=== PATIENT | male | born 1985 | race Caucasian/White ===

== ENCOUNTER → 2018-09-13 | Outpatient (CLI) | payer OTHER ==
--- NOTE | 2018-09-13 12:02 | CARD ---
MR#: [id number] Date of Study: 09/13/2018 Ordering Physician: JEANNETTE FLYNN, Referring Physician: JEANNETTE FLYNN Tech: Marisa Sharam SHIVANI APPROVED REPORT EXAM: Two-dimensional and M-mode echocardiogram with Doppler and color Doppler. Other Information Quality : GoodHR: 65bpm Rhythm : NSR INDICATION Chest Pain 2D DIMENSIONS RVDd3.1 (2.9-3.5cm)Left Atrium(2D)3.1 (1.6-4.0cm) IVSd0.9 (0.7-1.1cm)Aortic Root(2D)3.3 (2.0-3.7cm) LVDd5.7 (3.9-5.9cm)LVOT Diameter2.5 (1.8-2.4cm) PWd1.0 (0.7-1.1cm)LVDs3.6 (2.5-4.0cm) FS (%) 37.1 %SV104.9 ml LVEF(%)66.3 (>50%) M-Mode DIMENSIONS Left Atrium(MM)3.61 (2.5-4.0cm)Aortic Root3.64 (2.2-3.7cm) Aortic Valve AoV Peak Parrish.126.1cm/sAoV VTI26.9cm AO Peak GR.6.4mmHgLVOT Peak Parrish.106.6cm/s AO Mean GR.3mmHgAVA (VMAX)4.26cm2 IRVIN (VTI)4.20cm2 Mitral Valve MV E Tarjyjxi157.1cm/sMV DECEL TAMV900ac MV A Grhzwcyi65.2cm/sE/A Ratio2.2 Pulmonary Valve PV Peak Kfubuyob124.6cm/s Tricuspid Valve TR P. Ftjthpgm174xi/sRAP OXXOXUEV4bhOe TR Peak Gr.18cnXsHSTK03dlSd LEFT VENTRICLE The left ventricle is normal size. There is normal left ventricular wall thickness. The left ventricu lar systolic function is normal and the ejection fraction is within normal range. The Ejection Fracti on is 60-65%. There is normal LV segmental wall motion. The left ventricular diastolic function and f illing is normal for age. RIGHT VENTRICLE The right ventricle is normal size. There is normal right ventricular wall thickness. The right ventr icular systolic function is normal. Prominent RV apical trabeculations noted. This may be a normal va riant but if there is concern for congenital heart disease, consider referral for cardiac MRI. ATRIA The left atrium size is normal. The right atrium size is normal. The interatrial septum is intact wit h no evidence for an atrial septal defect or patent foramen ovale as noted on 2-D or Doppler imaging. AORTIC VALVE The aortic valve is normal in structure and function. The aortic valve is trileaflet. Doppler and Col or Flow revealed no significant aortic regurgitation. There is no significant aortic valvular stenosi s. MITRAL VALVE The mitral valve is normal in structure and function. There is no evidence of mitral valve prolapse. There is no mitral valve stenosis. Doppler and Color Flow revealed no mitral valve regurgitation note d. TRICUSPID VALVE The tricuspid valve is normal in structure and function. Doppler and Color Flow revealed trace tricus pid regurgitation. The PA pressure was estimated at 28 mmHg. There is no tricuspid valve prolapse or vegetation. PULMONIC VALVE The pulmonary valve is normal in structure and function. Doppler and Color Flow revealed trace pulmon ic valvular regurgitation. There is no pulmonic valvular stenosis. GREAT VESSELS The aortic root is normal in size. The ascending aorta is normal in size. The IVC is normal in size a nd collapses >50% with inspiration. PERICARDIAL EFFUSION There is no evidence of significant pericardial effusion. Critical Notification Critical Value: No <Conclusion> The left ventricular systolic function is normal and the ejection fraction is within normal range. Th e Ejection Fraction is 60-65%. There is normal LV segmental wall motion. No significant valvular disease. Prominent RV apical trabeculations noted. This may be a normal variant but if there is concern for co ngenital heart disease, consider referral for cardiac MRI. Signed by : Cornelius Wu, Electronically Approved : 09/13/2018 12:01:31
== END | disposition home or self-care (01) ==
LOC: ECHO 09:38
PROVIDERS: ATTEND Family Medicine
DX: R07.9 Chest pain, unspecified (principal); Z82.79 Family history of other congenital malformations, deformations and chromosomal abnormalities
CPT/HCPCS: 93306